=== PATIENT | male | born 1960 | race Caucasian/White ===

== ENCOUNTER → 2016-09-13 | Outpatient (REF) | payer BC ==
[2016-09-15 15:12] LABS: Lyme Disease IgG/IgM Antibodie <0.91 ISR (0.00-0.90); Lyme Disease IgM Ab Quantitati <0.80 index (0.00-0.79)
[2016-09-18 00:06] LABS: BABESIOSIS LEVEL IGG <1:10 (Neg:<1:10); BABESIOSIS LEVEL IGM <1:10 (Neg:<1:10)
== END ==
LOC: M LAB REF 16:20
PROVIDERS: ATTEND Surgery
DX: A69.20 Lyme disease, unspecified (principal)

== ENCOUNTER → 2020-09-16 | Outpatient (CLI) | payer BC ==
--- NOTE | 2020-09-16 15:08 | REP ---
INDICATION: PAIN. COMPARISON: None. TECHNIQUE: Seven views cervical spine. FINDINGS: There is no compression fracture or malalignment. There is no prevertebral soft tissue swelling. Moderate spurring is present at C4 through C7. There is moderate disc space narrowing and subchondral sclerosis at C5-6 and C6-7. There is diffuse narrowing, sclerosis and spurring at the posterior facet joints, with moderate bilateral facet spurring at C4-5. Oblique views are somewhat suboptimal. There may be some degree of foraminal narrowing bilaterally at C5-6 and C6-7. IMPRESSION: Moderate degenerative changes C5-6 and C6-7 as discussed above. <Electronically signed by Vahid Goddard > 09/16/20 [id number]
== END ==
LOC: M WUC 12:10
PROVIDERS: ATTEND Nurse Practitioner Adult Health
DX: M50.31 Other cervical disc degeneration, high cervical region (principal)

== ENCOUNTER 2024-01-06 09:47 | Day surgery (SDC) | payer BC ==
[~2024-01-06] VITALS: Ht 182.9 cm; Wt 112.5 kg
[~2024-01-06 09:47] MED LIST: BAYE325T12 PO; ELIQ5TAB PO; NS 1,000 ML IV ONE
[2024-01-06] MEDS ORDERED: propofoL 200 MG/20 ML VIAL As Ordered ONE (10:31)
[2024-01-06] MEDS ORDERED: LIDOCAINE 2% 100MG/5ML SDV (FOR ANES.) As Ordered ONE (11:01)
[2024-01-06 11:22] VITALS: TEMP 96.8
[2024-01-06 11:35] VITALS: BP 145/94; O2SAT 98
== END 2024-01-06 11:49 | disposition home or self-care (01) ==
LOC: M OPP 09:47
PROVIDERS: ATTEND Internal Medicine Gastroenterology
DX: Z12.11 Encounter for screening for malignant neoplasm of colon (principal); K57.30 Diverticulosis of large intestine without perforation or abscess without bleeding; K64.0 First degree hemorrhoids; I48.91 Unspecified atrial fibrillation; Z79.01 Long term (current) use of anticoagulants; Z79.2 Long term (current) use of antibiotics; Z79.82 Long term (current) use of aspirin; Z91.041 Radiographic dye allergy status

== ENCOUNTER → 2024-10-27 | Outpatient (CLI) | payer BC ==
[~2024-10-27] MED LIST changes: -BAYE325T12 PO; +BAYE325T2 PO; -NS 1,000 ML IV ONE
== END ==
LOC: M WUC 10:51
PROVIDERS: ATTEND Nurse Practitioner Family
DX: M25.562 Pain in left knee (principal)

== ENCOUNTER → 2024-11-03 | Outpatient (REF) | payer BC | LOC: M LAB REF 12:22 | PROVIDERS: ATTEND Nurse Practitioner Family | DX: R53.83 Other fatigue (principal) ==

== ENCOUNTER → 2025-04-19 | Outpatient (REF) | payer MEDICARE | LOC: M LAB REF 11:56 | PROVIDERS: ATTEND Nurse Practitioner Family | DX: Z11.59 Encounter for screening for other viral diseases (principal) ==

== ENCOUNTER → 2025-07-23 | Outpatient (CLI) | payer MEDICARE | LOC: M LAB 13:57 | PROVIDERS: ATTEND Internal Medicine Cardiovascular Disease | DX: R07.9 Chest pain, unspecified (principal) ==

== ENCOUNTER → 2025-08-03 | Outpatient (CLI) | payer MEDICARE | LOC: M CARPUL 15:05 | PROVIDERS: ATTEND Internal Medicine Cardiovascular Disease | DX: I77.810 Thoracic aortic ectasia (principal); R07.9 Chest pain, unspecified; R06.02 Shortness of breath ==